=== PATIENT | male | born 2000 | race Two or more races ===

== ENCOUNTER 2018-09-02 08:34 | Emergency (ER) | payer OTHER ==
[~2018-09-02] VITALS: Ht 185.4 cm; Wt 95.3 kg
[2018-09-02 09:11] VITALS: BP 156/90
[2018-09-02] MEDS ORDERED: BACITRACIN TOP OINT 1 UD PKG TOP ONE ×2 (09:20→09:45)
[2018-09-02] MEDS ORDERED: IBUPROFEN 800 MG TAB PO ONE (09:30)
== END 2018-09-02 10:47 | disposition home or self-care (01) ==
LOC: ER 08:38
DX: S92.421A Displaced fracture of distal phalanx of right great toe, initial encounter for closed fracture (principal); S91.231A Puncture wound without foreign body of right great toe with damage to nail, initial encounter; W20.8XXA Other cause of strike by thrown, projected or falling object, initial encounter; Y93.89 Activity, other specified; Y99.8 Other external cause status; Y92.89 Other specified places as the place of occurrence of the external cause
CPT/HCPCS: 73630; 99284; L3260